=== PATIENT | male | born 1960 | race Caucasian/White ===

== ENCOUNTER 2019-08-26 15:53 | Inpatient (IN) | payer BC ==
[~2019-08-26] VITALS: Ht 182.9 cm; Wt 99.3 kg
--- NOTE | 2019-08-26 16:01 | NUR ---
PT BIB BY [employer]. WAS SNOWBAORDING AT [facility] AND FELT A CHEST PAIN IN HIS CHEST THAT REMINDED HIM OF 2 PRVIOUS MIs. MOST RECENT WAS 2 YEARS AGO. WAS GIVEN [address] AT [facility]. WAS TAKEN TO [facility] AND BLOOD WORK REVEALED TROP OF 0.13. EKG DONE
[2019-08-26] MEDS ORDERED: METO25TA35 PO (16:12)
[2019-08-26] MEDS ORDERED: METF750T42 PO (16:12)
[2019-08-26] MEDS ORDERED: FOLIC ACID (16:13)
[2019-08-26] MEDS ORDERED: LISI-167 PO (16:13)
[2019-08-26] MEDS ORDERED: GLIM4TAB8 PO (16:13)
[2019-08-26] MEDS ORDERED: ASPI-614 PO (16:13)
[2019-08-26] MEDS ORDERED: ROSU40TA PO (16:13)
[2019-08-26] MEDS ORDERED: VIT D (16:13)
--- NOTE | 2019-08-26 16:27 | NUR ---
dr alvarez spoke with roma santos
--- NOTE | 2019-08-26 17:05 | NUR ---
PT IS RESTING IN [facility]. CRITICAL LAB VALUE REPORTED TO
--- NOTE | 2019-08-26 17:29 | NUR ---
BREAK RN: HOSPITALIST IN ROOM. VS STABLE. EQUIPMENT SERVICE ENGINEER ON. WILL CONTINUE TO MONITOR WHILE PRIMARY RN IS ON BREAK.
[2019-08-26] MEDS ORDERED: NITROGLYCERIN 0.4 MG/SPRAY SL PRN (18:00)
[2019-08-26] MEDS ORDERED: ONDANSETRON 2MG/ML, 2ML IVPush PRN (18:00)
[2019-08-26] MEDS ORDERED: NITROGLYCERIN 0.4 MG BOTTLE (25 TABS) SL PRN (18:00)
[2019-08-26] MEDS ORDERED: morphine SULFATE 10 MG/ML, 1ML IVPush PRN (18:00)
[2019-08-26 18:23] VITALS: BP 149/87
[2019-08-26 18:29] LABS: BASOPHILS # (AUTO) 0.03 x10^3/uL (0-0.1); BASOPHILS % (AUTO) 0 % (0-1); EOSINOPHILS # (AUTO) 0.03 x10^3/uL (0-0.4); EOSINOPHILS % (AUTO) 0 % (1-7); LYMPHOCYTES # (AUTO) 1.99 x10^3/uL (1-3.4); LYMPHOCYTES % (AUTO) 20 % (22-44); MD NO; MEAN CORPUSCULAR HEMOGLOBIN 28.6 pg (27.5-34.5); MEAN CORPUSCULAR HGB CONC 32.6 g/dL (33.2-36.2); MEAN CORPUSCULAR VOLUME 87.7 fL (81-97); MEAN PLATELET VOLUME 9.9 fL (7.4-10.4); MONOCYTES % (AUTO) 7 % (2-9); NEUTROPHILS % (AUTO) 72 % (42-75); PLATELET COUNT 179 x10^3/uL (130-400); RED BLOOD COUNT 4.86 x10^6/uL (4.38-5.82); RED CELL DISTRIBUTION WIDTH 14.2 % (9.4-14.8)
[2019-08-26] MEDS ORDERED: HEPARIN 25,000 UNITS/250ML PMX 250 ML IV PRN (18:30)
[2019-08-26] MEDS ORDERED: HEPARIN 5,000 UNITS/ML, 1ML IV PRN (18:30)
[2019-08-26] MEDS ORDERED: HEPARIN 5,000 UNITS/ML, 1ML IV ONE (18:30)
[2019-08-26] MEDS: ACETAMINOPHEN 325 MG TABLET PO PRN (18:31)
[2019-08-26] MEDS: ATORVASTATIN 80 MG TABLET PO SCH (21:08)
[2019-08-27 01:32] VITALS: BP 126/77
[2019-08-27] MEDS ORDERED: ASPIRIN 81 MG TABLET EC PO SCH (06:00)
[2019-08-27] MEDS: METOPROLOL SUCCINATE 25 MG TAB.ER.24H PO SCH (06:28)
[2019-08-27 07:54] LABS: BASOPHILS # (AUTO) 0.04 x10^3/uL (0-0.1); BASOPHILS % (AUTO) 1 % (0-1); EOSINOPHILS # (AUTO) 0.13 x10^3/uL (0-0.4); EOSINOPHILS % (AUTO) 2 % (1-7); LYMPHOCYTES # (AUTO) 2.27 x10^3/uL (1-3.4); LYMPHOCYTES % (AUTO) 32 % (22-44); MD NO; MEAN CORPUSCULAR HEMOGLOBIN 28.9 pg (27.5-34.5); MEAN CORPUSCULAR VOLUME 87.5 fL (81-97); MEAN PLATELET VOLUME 8.9 fL (7.4-10.4); MONOCYTES # (AUTO) 0.46 x10^3/uL (0.2-0.8); MONOCYTES % (AUTO) 6 % (2-9); NEUTROPHILS # (AUTO) 4.27 x10^3/uL (1.8-6.8); NEUTROPHILS % (AUTO) 60 % (42-75); PLATELET COUNT 165 x10^3/uL (130-400); RED BLOOD COUNT 4.82 x10^6/uL (4.38-5.82); RED CELL DISTRIBUTION WIDTH 13.7 % (9.4-14.8)
[2019-08-27 08:00] LABS: ALBUMIN 3.5 g/dL (3.4-5.0); ANION GAP 7 mmol/L (5-15); CALCIUM 8.1 mg/dL (8.5-10.1); CHLORIDE 108 mmol/L (98-107)
[2019-08-27 08:08] LABS: ALANINE AMINOTRANSFERASE 35 U/L (12-78); ALKALINE PHOSPHATASE 43 U/L (45-117); BILIRUBIN,TOTAL 0.6 mg/dL (0.2-1.0); CHOL/HDL RATIO 1.9; CHOLESTEROL, TOTAL 101 mg/dL (140-239); CREATININE 0.87 mg/dL (0.7-1.3); HDL CHOL % 52 % (26-37); HDL CHOLESTEROL (DIRECT) 53 mg/dL (40-60); LDL CHOLESTEROL,CALCULATED 35 mg/dL (54-169); LDL/HDL RATIO 0.7 (0.5-3.0); TOTAL PROTEIN 6.7 g/dL (6.4-8.2); TRIGLYCERIDES 66 mg/dL (50-200); VLDL CHOLESTEROL 13 mg/dL (0-25)
[2019-08-27] MEDS: LISINOPRIL 10 MG TABLET PO SCH (08:20)
[2019-08-27 09:08] VITALS: BP 143/81
[2019-08-27] MEDS ORDERED: SODIUM CHLORIDE 0.9% 1,000 ML IV SCH ×2 (10:30→12:08)
[2019-08-27] MEDS ORDERED: TICAGRELOR 90 MG TABLET ONE (11:01)
[2019-08-27] MEDS ORDERED: FENTANYL PF 100 MCG/2ML ONE (11:01)
[2019-08-27] MEDS ORDERED: VERAPAMIL 2.5 MG/ML, 2ML ONE (11:01)
[2019-08-27] MEDS ORDERED: MIDAZOLAM 1 MG/ML, 5ML ONE (11:01)
[2019-08-27] MEDS ORDERED: LIDOCAINE-MPF 1%, 5ML ONE (11:02)
[2019-08-27] MEDS ORDERED: BIVALIRUDIN 250 MG ONE (11:02)
[2019-08-27 12:25] VITALS: BP 131/79
[2019-08-27] MEDS: ACETAMINOPHEN 325 MG TABLET PO PRN (13:48)
[2019-08-27 14:04] LABS: BASOPHILS # (AUTO) 0.04 x10^3/uL (0-0.1); BASOPHILS % (AUTO) 1 % (0-1); EOSINOPHILS # (AUTO) 0.12 x10^3/uL (0-0.4); EOSINOPHILS % (AUTO) 2 % (1-7); LYMPHOCYTES % (AUTO) 35 % (22-44); MD NO; MEAN CORPUSCULAR HEMOGLOBIN 28.8 pg (27.5-34.5); MEAN CORPUSCULAR HGB CONC 33.1 g/dL (33.2-36.2); MEAN PLATELET VOLUME 9.2 fL (7.4-10.4); MONOCYTES # (AUTO) 0.45 x10^3/uL (0.2-0.8); MONOCYTES % (AUTO) 7 % (2-9); NEUTROPHILS # (AUTO) 3.45 x10^3/uL (1.8-6.8); NEUTROPHILS % (AUTO) 55 % (42-75); PLATELET COUNT 163 x10^3/uL (130-400); RED BLOOD COUNT 4.84 x10^6/uL (4.38-5.82); RED CELL DISTRIBUTION WIDTH 13.9 % (9.4-14.8)
[2019-08-27 14:10] LABS: ANION GAP 5 mmol/L (5-15); CHLORIDE 108 mmol/L (98-107); CREATININE 0.85 mg/dL (0.7-1.3); INTERNATIONAL NORMALIZED RATIO 1.51 (0.93-1.1); PROTHROMBIN TIME 16.1 Seconds (9.6-11.5)
[2019-08-27 14:20] VITALS: BP 125/78
[2019-08-27 20:49] VITALS: BP 131/75
[2019-08-27] MEDS: TICAGRELOR 90 MG TABLET PO SCH (20:57)
[2019-08-27] MEDS: ATORVASTATIN 80 MG TABLET PO SCH (20:57)
[2019-08-27] MEDS: GLIMEPIRIDE 4 MG TABLET PO SCH (20:57)
[2019-08-28 05:17] VITALS: BP 126/70
[2019-08-28] MEDS: METOPROLOL SUCCINATE 25 MG TAB.ER.24H PO SCH (05:22)
[2019-08-28 05:35] LABS: BASOPHILS # (AUTO) 0.03 x10^3/uL (0-0.1); BASOPHILS % (AUTO) 0 % (0-1); EOSINOPHILS # (AUTO) 0.15 x10^3/uL (0-0.4); EOSINOPHILS % (AUTO) 2 % (1-7); LYMPHOCYTES # (AUTO) 1.72 x10^3/uL (1-3.4); LYMPHOCYTES % (AUTO) 22 % (22-44); MD NO; MEAN CORPUSCULAR HGB CONC 33.3 g/dL (33.2-36.2); MEAN CORPUSCULAR VOLUME 86.9 fL (81-97); MONOCYTES # (AUTO) 0.57 x10^3/uL (0.2-0.8); MONOCYTES % (AUTO) 7 % (2-9); NEUTROPHILS # (AUTO) 5.53 x10^3/uL (1.8-6.8); NEUTROPHILS % (AUTO) 69 % (42-75); PLATELET COUNT 165 x10^3/uL (130-400); RED BLOOD COUNT 4.84 x10^6/uL (4.38-5.82); RED CELL DISTRIBUTION WIDTH 14.1 % (9.4-14.8)
[2019-08-28 05:42] LABS: ANION GAP 7 mmol/L (5-15); CALCIUM 8.5 mg/dL (8.5-10.1); CHLORIDE 108 mmol/L (98-107); CREATININE 0.92 mg/dL (0.7-1.3)
[2019-08-28 06:52] VITALS: BP 134/80
[2019-08-28] MEDS: LISINOPRIL 10 MG TABLET PO SCH (08:53)
[2019-08-28] MEDS: GLIMEPIRIDE 4 MG TABLET PO SCH (08:53)
[2019-08-28] MEDS: TICAGRELOR 90 MG TABLET PO SCH (08:53)
[2019-08-28] MEDS ORDERED: ASPIRIN 81 MG TABLET EC PO SCH (09:00)
[2019-08-28] MEDS ORDERED: ATOR-2 PO (11:27)
[2019-08-28] MEDS ORDERED: METO25TA91 PO (11:27)
[2019-08-28] MEDS ORDERED: METF750T42 PO (11:27)
[2019-08-28] MEDS ORDERED: TICA90TA PO (11:27)
[2019-08-28 13:16] VITALS: BP 147/82
== END 2019-08-28 14:10 | disposition home or self-care (01) | DRG 247 ==
LOC: ED 16:22 → EDIP 17:36 → 5SO 18:18 → DCLOUNGE 08-28 14:03
PROVIDERS: ADMIT Internal Medicine Infectious Disease; ATTEND Internal Medicine Infectious Disease
PROC: 4A023N7 Measurement of Cardiac Sampling and Pressure, Left Heart, Percutaneous Approach (ICD-10-PCS; principal; 2019-08-27)
PROC: 027034Z Dilation of Coronary Artery, One Artery with Drug-eluting Intraluminal Device, Percutaneous Approach (ICD-10-PCS; 2019-08-27)
PROC: B2111ZZ Fluoroscopy of Multiple Coronary Arteries using Low Osmolar Contrast (ICD-10-PCS; 2019-08-27)
DX: I21.4 Non-ST elevation (NSTEMI) myocardial infarction (principal); D72.829 Elevated white blood cell count, unspecified; E11.9 Type 2 diabetes mellitus without complications; E78.5 Hyperlipidemia, unspecified; I10 Essential (primary) hypertension; I25.10 Atherosclerotic heart disease of native coronary artery without angina pectoris; E11.65 Type 2 diabetes mellitus with hyperglycemia; H53.2 Diplopia; Z82.3 Family history of stroke; Z87.442 Personal history of urinary calculi; Z87.891 Personal history of nicotine dependence; Z95.5 Presence of coronary angioplasty implant and graft
CPT/HCPCS: 36415; 93458; 93571; 96374; 99285; C9600; 70450; 80048; 80053; 80061; 82962; 83735; 84100; 84443; 84484; 85025; 85520; 85610; 85730; 93005; 93306; 93356; 99156; 99157; C1769; C1894; G0378; J0583; J1644; J2250; J3010; C1725; C1874; C1887; J7030; Q9967